=== PATIENT | female | born 1980 | race Caucasian/White ===

== ENCOUNTER 2021-08-17 14:38 | Inpatient (IN) | payer OTHER ==
[~2021-08-17] VITALS: Ht 165.1 cm; Wt 74.3 kg
[2021-08-17 15:09] LABS: Base Excess Venous -1.7 mmol/L; Bicarbonate Venous 21.4 mmol/L (24.0-30.0); PCO2 Venous 73.3 mmHg (38-42); PO2 Venous 114 mmHg (38-42)
[2021-08-17 15:10] LABS: pH Blood Venous 7.17 (7.34-7.37)
[2021-08-17 15:38] LABS: Alanine Aminotransfer (ALT/SGP 25 U/L (12-78); Albumin, Blood 3.8 g/dL (3.4-5.0); Albumin/Globulin Ratio 0.9 (0.8-1.8); Alk Phos 86 U/L (50-136); Anion Gap 6 mmol/L (6-16); Aspartate Aminotrans (AST/SGOT 18 U/L (12-37); Bilirubin, Total 1.2 mg/dL (0.1-1.0); Blood Urea Nitrogen 11 mg/dL (8-24); Bun/Creatinine Ratio 16.7 (12.0-20.0); CO2, Blood 27 mmol/L (21-32); Chloride, Blood 107 mmol/L (98-108); Creatinine, Blood 0.66 mg/dL (0.40-1.00); Globulin, Blood 4.2 g/dL (2.2-4.0); Glomerular Filtration Rate >60 (60-); Glucose, Blood 152 mg/dL (70-99); Magnesium, Blood 2.3 mg/dL (1.6-2.4); Potassium, Blood 4.2 mmol/L (3.5-5.5); Sodium, Blood 140 mmol/L (136-145); Troponin I <0.015 ng/mL (0.000-0.040)
[2021-08-17 17:32] LABS: SARS-Cov-2 (COVID-19) PCR, MMC NEGATIVE (NEGATIVE)
--- NOTE | 2021-08-17 21:30 | NUR ---
ASSUMPTION OF CARE RECEIVED REPORT FROM JAZMIN BROWN IN ED AT 2029. PT ARRIVED AT 2054. SHE ARRIVED TO THE ED FROM EMS EARLI[facility] TODAY WITH C/O SOB, DIFFICULTY BREATHING AND WAS HYPOXIC. HAS HX OF ASTHMA AND DRUG ABUSE. SHE IS ON BIPAP 16/6 RR 16 FIO2 45%, SPO2 98-100%. SHE IS VERY AGITATED, COMBATIVE, AND CONFUSED. ARRIVED IN TUFF CUFFS BILATERAL WRISTS, AND SOFT RESTRAINTS BILATERAL ANKLES. SHE YELLS OUT, STATING "THE ANIMALS ARE GOING TO GET ME" AND CALLS OUT "I AM DYING, HELP ME", AND ASKS FOR HER DAD. ARRIVED ON PRECEDEX 1.4MCG/KG/HR. LUNGS ARE DIMINISHED WITH INSPIRATORY AND EXPIRATORY WHEEZE. HR SINUS TACH IN 110'S, BP NORMOTENSIVE WITH MAP >65. SHE IS NPO, ABDOMEN SOFT WITH WELL HEALED CIRCUMFERENTIAL SCAR. SHE WAS WEARING URINE SOAKED UNDERWEAR AND LYING IN URINE SOAKED BEDDING. BED BATH COMPLETED. MULTIPLE SCATTERED BRUISES AND SCABS T/O, OTHERWISE SKIN IS C/D/I. 22G PERIPHERAL IV RIGHT HAND, 20G IV TO LEFT WRIST, AND IO TO RIGHT LE. WILL REVIEW ORDERS AND TREAT PRESCRIBED.
--- NOTE | 2021-08-17 22:18 | NUR ---
PT IS UNABLE TO PARTICIPATE IN ADMISSION HX AND ASSESSMENT. INFORMATION OBTAINED FROM PRIOR ADMIT.
[2021-08-18 02:01] LABS: Source, Urine Catheter
[2021-08-18 02:05] LABS: Bilirubin, Urine Neg (Neg); Blood, Urine 5+ (Neg); Glucose Qualitative, Urine Neg (Neg); Ketones, Urine Neg (Neg); Leukocyte Esterase, Urine Neg (Neg); Nitrite, Urine Neg (Neg); Protein, Urine 3+ (Neg); Specific Gravity, Urine 1.025 (1.003-1.022); Urobilinogen, Urine NORM (Normal)
[2021-08-18 02:13] LABS: Appearance, Urine Cloudy (Clear); Color, Urine Yellow (P-Yellow)
[2021-08-18 02:14] LABS: Amorphous Heavy (0-Heavy); Bacteria Mod /hpf; Mucus Light (0-Heavy); Red Blood Cells, Urine TNTC /hpf (0-2); Squamous Epithelial Cells Few /hpf (Few); White Blood Cells, Urine Rare /hpf (0-5)
--- NOTE | 2021-08-18 02:51 | NUR ---
DR MCCARTNEY CONTACTED DUE TO PT'S MINIMAL UO AND SOFT BP. ORDER RECEIVED FOR NS BOLUS 500ML.
[2021-08-18 04:10] LABS: Anion Gap 7 mmol/L (6-16); Blood Urea Nitrogen 14 mg/dL (8-24); Bun/Creatinine Ratio 24.1 (12.0-20.0); CO2, Blood 25 mmol/L (21-32); Calcium, Blood 8.8 mg/dL (8.5-10.1); Chloride, Blood 109 mmol/L (98-108); Creatinine, Blood 0.58 mg/dL (0.40-1.00); Glomerular Filtration Rate >60 (60-); Glucose, Blood 174 mg/dL (70-99); Potassium, Blood 4.7 mmol/L (3.5-5.5); Sodium, Blood 141 mmol/L (136-145)
--- NOTE | 2021-08-18 04:22 | NUR ---
DR MCCARTNEY UPDATED WITH PT'S BP TRENDING DOWN. PRECEDEX IS OFF DUE TO BRADYCARDIA, PT IS TOLERATING BIPAP. ORDERS FOR ADDITIONAL NS 500ML BOLUS AND INCREASE MAINTENANCE FLUIDS TO 100ML/HR X 1.5 LITERS. RT TO MANAGE BIPAP PRESSURES AND PT HAVE HAVE BREAKS OFF BIPAP TOLERATED.
--- NOTE | 2021-08-18 05:15 | NUR ---
DR MCCARTNEY UPDATED WITH PT'S V/S, UO, I/O. ORDERS FOR ADDITIONAL FLUID BOLUS AND LOW DOSE LEVOPHED NEEDED FOR BP.
--- NOTE | 2021-08-18 05:53 | NUR ---
PT IS LESS AGITATED, MORE RESTFUL AND DIRECTABLE, AND ANSWERRING SOME QUESTIONS WITH ONE WORD ANSWERS NOW. SHE KNOWS SHE'S IN THE HOSPITAL, FOLLOWS SOME COMMANDS, BUT REFUSES TO OPEN HER EYES. SHE DENIES PAIN, C/O FEELING COLD, WARM BLANKETS PROVIDED. SHE REMAINS AFEBRILE. HR IN 60'S TO 70'S, SR. BP IMPROVED WITH 2ND LITER BOLUSING, BUT MAY USE LOW DOSE LEVOPHED IF NEEDED. LS WHEEZES THROUGHOUT, SLIGHTLY IMPROVED. PT HAS OCCANSIONAL NONPRODUCTIVE COUGH. BIPAP SETTINGS /6, 30% FIO2. ATKINS IN PLACE WITH CLEAR YELLOW URINE DRAINING, UO IMPROVING. UTOX PENDING. WILL CONTINUE TO MONITOR AND REPORT TO ONCOMING SHIFT.
[2021-08-18 06:26] LABS: U Amphetamine Screen DETECTED; U Barbituate Screen Not Detected; U Benzodiazapine Screen DETECTED; U Buprenorphine Screen Not Detected; U Cannabinoids Screen Not Detected; U Cocaine Screen Not Detected; U Methadone Screen Not Detected; U Methamphetamine Screen DETECTED; U Opiates Screen Not Detected; U Oxycodone Screen Not Detected; U Phencyclidine Screen Not Detected; U Propoxyphene Screen Not Detected
--- NOTE | 2021-08-18 07:00 | NUR ---
I HAVE ASSUMED CARE OF PATIENT FROM JAZMIN LANDIN. AT THIS TIME PT IS RESTING ON BED WITH CPAP IN PLACE AND SOFT RESTRAINTS ON. LEVO AND IVF RUNNING THROUGH MIDLINE.
[2021-08-18 08:09] LABS: BASOPHILS PERCENT AUTO 0 % (0-2); EOSINOPHILS PERCENT AUTO 0 % (0-6); Hematocrit 33.5 % (33.0-51.0); Hemoglobin 11.3 g/dL (11.5-16.0); IMMATURE GRAN ABSOLUTE AUTO 0.02 K/mm3 (0.00-0.10); IMMATURE GRAN PERCENT AUTO 0 % (0-1); LYMPHOCYTES ABSOLUTE AUTO 0.64 K/mm3 (0.84-5.20); LYMPHOCYTES PERCENT AUTO 9 % (21-46); MONOCYTES ABSOLUTE AUTO 0.17 K/mm3 (0.16-1.47); MONOCYTES PERCENT AUTO 2 % (4-13); Mean Corpuscular HGB 30.6 pg (26.0-34.0); Mean Corpuscular HGB Conc 33.7 g/dL (31.5-36.5); Mean Corpuscular Volume 91 fL (80-100); Mean Platelet Volume 10.3 fL (9.1-12.4); NEUTROPHILS ABSOLUTE AUTO 6.25 K/mm3 (1.96-9.15); NEUTROPHILS PERCENT AUTO 88 % (41-73); Platelet Count 190 K/mm3 (150-400); RDW Coefficient Variation 12.3 % (11.7-14.2); RDW Standard Deviation 41.1 fL (35.1-46.3); Red Blood Cell Count 3.69 M/mm3 (3.80-5.20); White Blood Cell Count 7.08 K/mm3 (4.00-11.30)
[2021-08-18 08:11] LABS: PO2 Arterial 54.6 mmHg (80-100)
--- NOTE | 2021-08-18 14:00 | NUR ---
PT TRANSFERED TO U VIA WHEELCHAIR BY THIS RN.
--- NOTE | 2021-08-18 14:35 | NUR ---
ASSUMPTION OF CARE NOTE PT AWAKE UPON ARRIVAL, NOW SLEEPING BUT WAS ALERT TO SELF, PLACE, AND SITUATION. ABLE TO MAKE NEEDS KNOWN. PRODUCTIVE COUGH NOTED, PT ABLE TO CLEAR SPUTUM ON OWN, SPO2 90-92%. POWERGLIDE IN LEFT ARM IS SALINE LOCKED. IV IN RIGHT HAND IS SALINE LOCKED. CALL LIGHT IN REACH. WILL CONTINUE TO MONITOR.
--- NOTE | 2021-08-18 16:37 | NUR ---
CARE NOTE PT TEMPERATURE RUNNING 99.9-100.0. MADE AWARE. ORDERS TO START ANTIBIOTICS EARLY GIVEN BY DR. HERNANDEZ AT 1635. WILL CONTINUE TO MONITOR TEMPERATURE.
--- NOTE | 2021-08-18 17:57 | NUR ---
SHIFT SUMMARY PT ALERT TO SELF AND PLACE. SHE HAS BEEN LETHARGIC SINCE ARRIVAL TO PCU FLOOR BUT WAKES TO VERBAL STIMULI. WHEN PATIENT IS AWAKE SHE IS AGITATED BUT HAS BEEN REDIRETABLE/DIFFUSED WITH THERAPEUTIC COMMUNICATION. SPO2 NOW 96% VIA ROOM AIR. WILL DESATURATE TO 88-89% WITH OCCASIONAL COUGH. COUGH IS PRODUCTIVE AND PT CLEARS SPUTUM INTO EMESIS BAG. HR IS ST 100-113. TELE MONITORING IN PLACE. POWERGLIDE IN LEFT UPPER ARM IS INFUSING PER ORDERS. IV IN RIGHT HAND IS SALINE LOCKED. ATKINS CATHETER IS IN PLACE AND DRAINING CLEAR YELLOW OUTPUT. WILL CONTINUE TO MONITOR UNTIL REPORT GIVEN.
--- NOTE | 2021-08-18 18:50 | NUR ---
CARE NOTE PT NOW SLEEPING AND APPEARS COMFORTABLE, WILL WAKE TO VERBAL STIMULI. WILL PASS INFO. REGARDING PT TEMPERATURE TO ONCOMING NURSE. SPO2 95% VIA RA. CALL LIGHT IN REACH. BED ALARM ON. WILL CONTINUE TO MONITOR.
[2021-08-19 06:54] LABS: BASOPHILS ABSOLUTE AUTO 0.01 K/mm3 (0.00-0.23); BASOPHILS PERCENT AUTO 0 % (0-2); EOSINOPHILS PERCENT AUTO 0 % (0-6); Hematocrit 32.2 % (33.0-51.0); Hemoglobin 10.9 g/dL (11.5-16.0); IMMATURE GRAN ABSOLUTE AUTO 0.07 K/mm3 (0.00-0.10); IMMATURE GRAN PERCENT AUTO 1 % (0-1); LYMPHOCYTES ABSOLUTE AUTO 0.85 K/mm3 (0.84-5.20); LYMPHOCYTES PERCENT AUTO 8 % (21-46); MONOCYTES ABSOLUTE AUTO 0.44 K/mm3 (0.16-1.47); MONOCYTES PERCENT AUTO 4 % (4-13); Mean Corpuscular HGB Conc 33.9 g/dL (31.5-36.5); Mean Corpuscular Volume 92 fL (80-100); Mean Platelet Volume 10.6 fL (9.1-12.4); NEUTROPHILS ABSOLUTE AUTO 9.13 K/mm3 (1.96-9.15); NEUTROPHILS PERCENT AUTO 87 % (41-73); Platelet Count 211 K/mm3 (150-400); RDW Coefficient Variation 12.9 % (11.7-14.2); RDW Standard Deviation 42.5 fL (35.1-46.3); Red Blood Cell Count 3.52 M/mm3 (3.80-5.20)
[2021-08-19 11:57] LABS: Albumin, Blood 2.9 g/dL (3.4-5.0); Anion Gap 6 mmol/L (6-16); Blood Urea Nitrogen 10 mg/dL (8-24); Bun/Creatinine Ratio 19.4 (12.0-20.0); CO2, Blood 27 mmol/L (21-32); Calcium, Blood 9.2 mg/dL (8.5-10.1); Chloride, Blood 109 mmol/L (98-108); Creatinine, Blood 0.52 mg/dL (0.40-1.00); Glomerular Filtration Rate >60 (60-); Glucose, Blood 172 mg/dL (70-99); Phosphorus, Blood 2.7 mg/dL (2.5-4.9); Potassium, Blood 3.7 mmol/L (3.5-5.5); Sodium, Blood 142 mmol/L (136-145)
[2021-08-19] MEDS ORDERED: BENMENLOZ MT (12:16)
[2021-08-19] MEDS ORDERED: Prednisone10 MG PO (12:17)
[2021-08-19] MEDS ORDERED: PROBIOTIC1 EA13 PO (12:18)
[2021-08-19] MEDS ORDERED: ALBU90OI6 INH (12:19)
[2021-08-19] MEDS ORDERED: SYMBICORT 160-4.6 GM INH (12:19)
[2021-08-19] MEDS ORDERED: LEVO750 PO (12:20)
[2021-08-19] MEDS ORDERED: LORA.5 PO (12:20)
--- NOTE | 2021-08-19 13:30 | NUR ---
DISCHARGE: PT SHOWERS INDEPENDENTLY, DRESSES SELF. IVs DC'D WNL. PT PROVIDED WITH DC INSTRUCTIONS, PAPERWORK, PRESCRIPTIONS. DC PAPERWORK REVIEWED WITH PT, ALL QUESTIONS ANSWERED, PT V/U. PT ESCORTED VIA WHEELCHAIR TO AWAITING RIDE W/OUT INCIDENT.
== END 2021-08-19 14:00 | disposition home or self-care (01) | DRG 177 ==
LOC: EDBD 14:38 → ER 14:38 → ICUW 21:09 → PCU 08-18 14:29
PROVIDERS: Internal Medicine; Student in an Organized Health Care Education/Training Program; ADMIT Internal Medicine
PROC: 3E033XZ Introduction of Vasopressor into Peripheral Vein, Percutaneous Approach (ICD-10-PCS; principal; 2021-08-17)
PROC: HZ2ZZZZ Detoxification Services for Substance Abuse Treatment (ICD-10-PCS; 2021-08-17)
PROC: 5A09357 Assistance with Respiratory Ventilation, Less than 24 Consecutive Hours, Continuous Positive Airway Pressure (ICD-10-PCS; 2021-08-17)
DX: J69.0 Pneumonitis due to inhalation of food and vomit (principal); J96.01 Acute respiratory failure with hypoxia; G92.8 Other toxic encephalopathy; J96.02 Acute respiratory failure with hypercapnia; J45.901 Unspecified asthma with (acute) exacerbation; F15.23 Other stimulant dependence with withdrawal; Z78.1 Physical restraint status; Z20.822 Contact with and (suspected) exposure to COVID-19; I95.9 Hypotension, unspecified; R45.1 Restlessness and agitation; Z59.00 Homelessness unspecified; Z87.891 Personal history of nicotine dependence; Z88.8 Allergy status to other drugs, medicaments and biological substances; Z91.030 Bee allergy status; Z79.899 Other long term (current) drug therapy
CPT/HCPCS: 36415; 36600; 51703; 71045; 80048; 80053; 80069; 81001; 82803; 82947; 83735; 83880; 84145; 84484; 85025; 87086; 93005; 93010; 94640; 94645; 94660; 94760; 94762; 96365; 96366; 96367; 96372; 96375; 96376; 99285-25; A9270; C1751; J0456; J0696; J1650; J1790; J2060; J2930; J3105; J3475; J7030; J7050; J7060; J7120; U0004